=== PATIENT | male | born 1975 | race Caucasian/White ===

== ENCOUNTER 2018-11-05 17:31 | Emergency (ER) | payer SELFPAY ==
[2018-11-05 17:32] VITALS: BP 142/77; PULSE 95; RESP 17; TEMP 36.9; O2SAT 98; BMI 25.4
[2018-11-05 17:39] VITALS: RESP 16
--- NOTE | 2018-11-05 17:58 | ED.VIS.GEN ---
History of Present Illness Chief Complaint: Dental Detail of Chief Complaint: Pain and swelling Onset: Days Current Severity: Moderate Maximum Severity: Moderate Narrative: Patient presents with 3-day history of left upper dental pain and facial swelling. He states he has had drainage from this abscess. He denies fever or chills. He does not have a dentist to follow-up with. Past Medical History - Allergies and Home Meds Allergies/Adverse Reactions: Allergies No Known Allergies Allergy (Verified 11/05/18 17:31) Primary Care Physician: Care Physician,No Primary [Primary Care Provider] - Prior records reviewed: Yes Past Medical History: - - Reviewed Smoking Status: Former smoker Review of Systems General: Denies: Chills, Fever Eyes: Denies: Visual changes - bilaterally ENT: Reports: - - Facial swelling and dental pain. Denies: Bilateral ear pain Cardiovascular: Denies: Chest pain Respiratory: Denies: Dyspnea Gastrointestinal: Denies: Abdominal pain Musculoskeletal: Denies: Myalgias, Arthralgias Skin: Reports: Abscess Neurological: Denies: Headache Hematologic: Denies: Easy bruising Allergy: Denies: Uticaria Physical Exam Vital Signs/Narrative: Vital Signs Temp Pulse Resp BP Pulse Ox 11/05/18 17:39 16 11/05/18 17:32 98.4 F 95 17 142/77 H 98 Inital Vital Signs reviewed: Yes General: Well nourished, Well developed Head: - - Mild left facial edema. ENT: Moist mucous membranes, - - Multiple dental caries with many teeth broken off at gumline. Left upper gumline is mildly swollen. Posterior pharynx examination is normal. Patient speaks with a strong voice and is tolerating secretions well. Back: Nontender Extremities: Nontender Skin: Normal color Neurological: Alert, Oriented x3 Psychological: Normal affect Diagnostic/Tx/Re-eval - Medical Decision Making Patient is given a prescription for Pen-Vee K. He is given a dental referral list. ED Disposition - Plan for ED Patient: Disposition: Home or Assisted Living Diagnosis: Dental abscess Instructions: Dental Abscess Prescriptions: Naproxen [Naprosyn] 500 mg PO BID PRN PRN #20 tablet PRN Reason: Pain Penicillin V Potassium 500 mg PO 4X/DAY #40 tablet Additional Instructions: Dental list provided
[2018-11-05] MEDS: Penicillin Vk 250 MG Tablet 500 MG PO (18:04)
[2018-11-05 18:08] VITALS: RESP 16
== END 2018-11-05 18:19 | disposition home or self-care (01) ==
LOC: ED 18:15
PROVIDERS: Emergency Provider Emergency Medicine
DX: K04.7 Periapical abscess without sinus (principal); K02.9 Dental caries, unspecified; Z87.891 Personal history of nicotine dependence
CPT/HCPCS: 99283

== ENCOUNTER 2019-11-17 17:35 | Emergency (ER) | payer SELFPAY ==
[2019-11-17 17:37] VITALS: BP 146/79; PULSE 95; RESP 18; TEMP 36.4; O2SAT 100; BMI 24.0
--- NOTE | 2019-11-17 17:58 | RAD_ITS ---
STUDY: X-RAY - LEFT FOOT CLINICAL: Male, 44 years old. HIT FOOT ON TREE, PINKY TOE PAIN TECHNIQUE: 3 view(s) of the foot. COMPARISON: None. FINDINGS: Normal talus, calcaneus, and tarsal bones. Normal visualized subtalar, talonavicular, calcaneocuboid, tarsal and tarsometatarsal articulations. Normal metatarsi. Normal metatarsophalangeal joint of the great toe. Normal tibial and fibular sesamoid bones. Normal interphalangeal joint of the great toe. Normal phalanges of the great toe. Normal second through fifth metatarsophalangeal joints. Normal interphalangeal joints and phalanges of the lesser toes. Swelling of the distal aspect of the fifth toe. RAD/Foot min 3 Views IMPRESSION: Swelling of the distal fifth toe without associated fracture or dislocation Electronically Signed: Sukhwinder Elizondo MD at 18:22 EDT , Service support ,
--- NOTE | 2019-11-17 18:29 | ED.VISSUMM ---
- ER Visit Summary Date of Service: 11/17/19 Chief Complaint: [Injury to left small toe] History of Present Illness: The patient is a 44 M [presents to the emergency department with an injury to his left fifth toe that occurred 3 days ago. Patient states that he was walking barefoot outside in the night and he struck a root with his foot. Patient having pain with walking. Patient otherwise has no medical history. Patient states that he has had a tetanus shot within the last 5 years.] Physical Examination: [Left foot-patient has tenderness palpation over the small toe. Patient has a superficial abrasion over the needle aspect of the toe. He is neurovascular intact. No obvious deformity.] Test Results: [X-rays of the left foot obtained showed no fractures only some soft tissue swelling over the fifth toe.] Emergency Department Course and Treatment: [She refused crutches.] Treatment Plan: Patient will be started on Keflex due to concern for early cellulitis.] Disposition: [Discharged home in stable condition] Impression: [Contusion left fifth toe Abrasion left fifth toe with early cellulitis] This note was generated with [employer] dictation software. It may contain incorrect words, spelling, and punctuation that were not noted in review of the chart prior to signing ED Disposition - Plan for ED Patient: Referrals: Care Physician,No Primary [Primary Care Provider] -
--- NOTE | 2019-11-17 18:32 | DCINST.ED_ITS ---
ED Disposition - Plan for ED Patient: Instructions: ED FOOT CONTUSION, ED Cellulitis Prescriptions: Cephalexin [Keflex] 500 mg PO Q6 #40 cap Transmission Status: Pending to [employer] Support #30 Referrals: Care Physician,No Primary [Primary Care Provider] - Juan Patel III, MD [STAFF PHYSICIAN] - 3-5 Days
== END 2019-11-17 19:00 | disposition home or self-care (01) ==
LOC: ED 18:20
PROVIDERS: Emergency Provider Emergency Medicine
DX: S90.122A Contusion of left lesser toe(s) without damage to nail, initial encounter (principal); S90.415A Abrasion, left lesser toe(s), initial encounter; L03.032 Cellulitis of left toe; W22.09XA Striking against other stationary object, initial encounter; Y93.01 Activity, walking, marching and hiking; Y92.9 Unspecified place or not applicable; Y99.9 Unspecified external cause status; F17.220 Nicotine dependence, chewing tobacco, uncomplicated
CPT/HCPCS: 73630; 99282

== ENCOUNTER 2020-03-08 17:56 | Emergency (ER) | payer MEDICARE, SELFPAY ==
[2020-03-08 17:57] VITALS: BP 144/97; PULSE 105; RESP 25; TEMP 39.3; O2SAT 97; BMI 23.8
--- NOTE | 2020-03-08 18:13 | ED.DCSUM_ITS ---
History of Present Illness Chief Complaint: Shortness of Breath Informant: Patient Narrative: Patient states that his sent him to the hospital to be checked for Covid. She tested +3 days ago. He started coughing yesterday. He notes some anterior chest soreness with coughing. He notes a sore throat with cough. Headache generalized myalgias and body aches. He states that he is a non-smoker. He tells me that his is a nurse at a residential and checked his pulse and it was 80 and she got concerned and sent him in. Past Medical History - Allergies and Home Meds Allergies/Adverse Reactions: Allergies No Known Allergies Allergy (Verified 03/08/20 18:01) Primary Care Physician: Care Physician,No Primary [Primary Care Provider] - Past Medical History: None Surgical History: noncontributory Lives: Spouse/ Significant Other Smoking Status: Former smoker Drugs: None Review of Systems General: Reports: Chills, Fever, Malaise. Denies: Sweats Eyes: Denies: Visual changes - bilaterally, Diplopia ENT: Denies: Rhinorrhea, Sore throat Cardiovascular: Reports: Chest pain. Denies: Palpitations Respiratory: Reports: Dyspnea, Cough. Denies: Dyspnea on exertion Gastrointestinal: Reports: Nausea, Diarrhea. Denies: Abdominal pain, Vomiting, Melena, Hematochezia Genitourinary: Denies: Dysuria, Hematuria, Frequency Musculoskeletal: Reports: Myalgias. Denies: Back pain, Extremity Pain Skin: Denies: Rash, Wounds Neurological: Reports: Headache, Parasthesia. Denies: Weakness, Numbness Physical Exam Vital Signs/Narrative: Vital Signs Temp Pulse Resp BP Pulse Ox 03/08/20 17:57 102.8 F H 105 H 25 H 144/97 H 97 Diagnostic/Tx/Re-eval - Medical Decision Making My interpretation of the single view portable chest x-ray is no acute infiltrates. Normal mediastinal silhouette. Patient received 800 mg of Motrin and we obtained a Covid antigen test. Patient's vital signs show no hypoxemia. He is speaking in full sentences. I think he can be managed at home at the current time. Would recommend self- isolation. Return if worsening or concerns ED Disposition - Plan for ED Patient: Disposition: Home or Assisted Living Diagnosis: COVID-19 Instructions: Coronavirus Disease 2019 (COVID-19): Caring for Yourself or Others Referrals: Good Ewing MD [STAFF PHYSICIAN] - (as needed for primary care)
[2020-03-08] MEDS: Ibuprofen 400 MG Tablet 800 MG PO (18:20)
--- NOTE | 2020-03-08 18:24 | RAD_ITS ---
STUDY: X-RAY CHEST REASON FOR EXAM: Male, 44 years old. SOB, TESTED POSITIVE FOR COVID 3 DAYS AGO TECHNIQUE: AP portable COMPARISON: 07/03/2016 FINDINGS: There is mild interstitial thickening in the lower lobes.. There is no demonstrated pleural abnormality. Normal size heart. Normal mediastinum and tana. Normal visualized pulmonary arteries. Normal visualized aortic arch and descending thoracic aorta. Dorsal spine demonstrates mild spondylosis.. Normal visualized ribs, clavicles, and shoulders. There is no demonstrated abnormality of the visualized soft tissue structures of the upper abdomen. No significant change since prior exam RAD/Chest 1 View (Portable) IMPRESSION: Mild interstitial thickening in the lower lobes. No focal infiltration.. Electronically Signed: Sukhwinder Elizondo MD at 18:59 EST , Service support ,
[2020-03-08 19:22] VITALS: PULSE 90; RESP 18; O2SAT 95
== END 2020-03-08 19:26 | disposition home or self-care (01) ==
LOC: ED 18:55
PROVIDERS: Emergency Provider Emergency Medicine
DX: U07.1 COVID-19 (principal); Z87.891 Personal history of nicotine dependence
CPT/HCPCS: 71045; 87426; 99284

== ENCOUNTER 2020-11-07 15:15 | Emergency (ER) | payer MEDICAID, SELFPAY ==
[2020-11-07 15:16] VITALS: BP 144/102; PULSE 93; RESP 16; TEMP 36.6; O2SAT 100; BMI 25.2
--- NOTE | 2020-11-07 15:25 | RAD_ITS ---
STUDY: X-RAY - UNILATERAL RIBS ( LEFT ) WITH CHEST REASON FOR EXAM: Male, 45 years old. FALL TECHNIQUE - RIBS: 4 view(s) of the ribs. TECHNIQUE - CHEST: Single PA view of the chest. COMPARISON: Chest x-ray dated March 08, 2020 FINDINGS - RIBS: Acute minimally displaced oblique fracture is present at the lateral aspect of the left sixth rib. No additional fractures are seen. FINDINGS - CHEST: The lungs are clear and expanded. There is no demonstrated pleural abnormality. Normal size heart. Normal mediastinum and tana. Normal visualized pulmonary arteries. There is atherosclerotic calcification of the aortic arch with tortuosity. There are diffuse degenerative changes of the visualized thoracic spine. Normal visualized clavicles and shoulders. There is no demonstrated abnormality of the visualized soft tissue structures of the upper abdomen. RAD/Ribs Uni Min 3V w/PA Chest IMPRESSION: RIBS: Acute minimally displaced oblique fracture is present at the lateral aspect of the left sixth rib. No additional fractures are seen. CHEST: No acute process Electronically Signed: Danny Smalls MD at 16:43 EDT , Service support ,
--- NOTE | 2020-11-07 16:28 | CM.ED ---
SW Note Referral Source: Case Find Referral Reason: No Primary Care Physician (PCP) SW reviewed chart and noted that patient has no PCP. SW provided patient with list of [facility] List for reference. SW remains available for any additional needs. Plan: Provided patient with PCP information Monika GLOVER
--- NOTE | 2020-11-07 16:48 | EX.ED.GENINJ ---
HPI History of Present Illness Chief Complaint: Fall Informant: patient Narrative Narrative: Patient is a 45-year-old previously healthy male who presents to the emergency department after a fall out of a tree stand. He states he was approximately 10 feet up whenever he lost his balance and fell out and landed on the left side. This was 2 days prior. He has been having left rib pain since. He denies any significant shortness of breath. No known aggravating or relieving factors. He denies any abdominal pain or nausea/vomiting. No blood in his urine. No change in bowel movements. He has not been taking anything for his symptoms. He currently rates the pain as a 7 out of 10. He denies hitting his head or losing consciousness. No neck or back pain. PFSH PFSH Home Medications hydrocodone-acetaminophen 1 tab PO Q6H PRN PRN 3 Days #12 tablet 11/07/20 [Rx Last Taken Unknown] lidocaine [Lidoderm] 1 patch TOPICAL DAILY 10 Days #5 ea 11/07/20 [Rx Last Taken Unknown] naproxen [Naprosyn] 500 mg PO BID PRN 10 Days #20 tab 11/07/20 [Rx Last Taken Unknown] Allergy/AdvReac Type Severity Reaction Status Date / Time No Known Allergies Allergy Verified 11/07/20 15:15 Social History Smoking Status: Current some day smoker tobacco type: smokeless tobacco ROS ROS ED Constitutional Constitutional ED: Denies chills or fever(s) Eyes Eyes: Denies change in vision ENT ENT ED: Denies epistaxis or rhinorrhea Cardiovascular Cardiovascular: Reports other Details: Chest wall pain ; Denies palpitations Respiratory/Chest Respiratory/Chest: Denies cough or dyspnea Gastrointestinal Gastrointestinal: Denies abdominal pain, diarrhea, nausea or vomiting Genitourinary Genitourinary ED: Denies dysuria, hematuria or urinary frequency Musculoskeletal Musculoskeletal: Denies back pain or neck pain Integumentary Denies rash Neurologic Neurologic: Denies dizziness, headache(s) or weakness EXAM Physical Exam Const Vital Signs: 11/07/20 15:16 11/07/20 15:39 Temperature 97.8 F Temperature Source Temporal Pulse Rate 93 Respiratory Rate 16 Respiratory Effort Normal Non-Labored Respiratory Depth Normal Respiratory Pattern Normal Blood Pressure 144/102 H Blood Pressure Mean 116 Pulse Ox 100 Oxygen Delivery Method Room Air Positive well nourished and well developed General Appearance ED: well developed and NAD HEENT Reports normocephalic, head/scalp atraumatic and moist mucous membranes Eyes PERRL and EOMs intact bilaterally Neck supple General: Negative for tenderness Chest Wall inspection of chest normal Chest Narrative: There is tenderness over the left lateral chest wall. No crepitus or step-off sign appreciated. Resp normal respiratory effort and clear to auscultation bilaterally Auscultation: Negative for rales, rhonchi or wheezes Cardio regular rate, regular rhythm and no murmurs GI normal to inspection, nondistended, normoactive bowel sounds and non-tender Palpation: soft; Negative for guarding or rebound tenderness present Back/Spine no CVA tenderness Extremity normal to inspection General Extremety ED: Negative for edema or tenderness General Extremity: Negative for edema Neuro oriented x3, CN's II-XII intact bilaterally and no sensory deficits noted Sensorium / Orientation: alert Motor Exam: strength 5/5 throughout Psych mental status grossly normal Skin Skin Narrative: Superficial abrasion over left lateral abdominal/chest wall MDM MDM MDM Narrative Medical decision making narrative: Patient presents to the emergency department for left rib pain after a fall out of a tree stand 2 days ago. On arrival to the ED he is not hypotensive or tachycardic. He satting 100% on room air. He is not tachypneic. He does have tenderness along the left chest wall without any abdominal tenderness at all. X-ray was obtained out of triage and did show a left sixth rib fracture that is minimally displaced. No evidence of pneumothorax. Will recommend symptomatic treatment of this. He is given a prescription for Naprosyn, [place] and Lidoderm patch. Is given incentive spirometer. We will have him follow-up with PCP. Social work did give him referrals as he does not currently have one. Patient is comfortable with this plan. Return precautions are reviewed. All questions were answered. Radiography Diagnostic Testing: Radiology Impression Ribs w/Chest X-Ray 11/07/20 15:25 IMPRESSION: RIBS: Acute minimally displaced oblique fracture is present at the lateral aspect of the left sixth rib. No additional fractures are seen. CHEST: No acute process Electronically Signed: Danny Smalls MD at 16:43 EDT , Service support , Discharge Plan Triage Chief Complaint: Fall ED Provider: Stanton Perez Dx/Rx/DC Orders Clinical Impression: Closed rib fracture Instructions: ED Rib Fracture Prescriptions: New hydrocodone-acetaminophen 5-325 mg tablet 1 tab PO Q6H PRN PRN (Reason: Pain) 3 Days Qty: 12 RF: 0 naproxen [Naprosyn] 500 mg tablet 500 mg PO BID PRN (Reason: pain) 10 Days Qty: 20 RF: 0 lidocaine [Lidoderm] 5 % adhesive patch,medicated 1 patch topical DAILY 10 Days Qty: 5 RF: 0 Primary Care Provider: Care Physician,No Primary Referrals: Care Physician,No Primary [Primary Care Provider] - 2 Days Disposition Disposition: Home, Self Care
[2020-11-07] MEDS: HYDROcodone Bitartrate/Apap 5/325 Tablet PO (16:58)
== END 2020-11-07 17:33 | disposition home or self-care (01) ==
PROVIDERS: Emergency Provider Emergency Medicine
DX: S22.32XA Fracture of one rib, left side, initial encounter for closed fracture (principal); F17.200 Nicotine dependence, unspecified, uncomplicated; W01.0XXA Fall on same level from slipping, tripping and stumbling without subsequent striking against object, initial encounter
CPT/HCPCS: 71101; 99283

== ENCOUNTER 2021-10-23 12:13 | Emergency (ER) | payer MEDICAID, SELFPAY ==
[2021-10-23 12:16] VITALS: BP 137/49; PULSE 101; RESP 17; TEMP 36.9; O2SAT 100; BMI 25.1
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
[2021-10-23] MEDS: HYDROcodone Bitartrate/Apap 5/325 Tablet PO (13:15)
[2021-10-23 14:57] VITALS: PULSE 97; RESP 17; O2SAT 100
== END 2021-10-23 14:58 | disposition home or self-care (01) ==
PROVIDERS: Emergency Provider Emergency Medicine; Visit Provider Emergency Medicine
DX: S22.41XA Multiple fractures of ribs, right side, initial encounter for closed fracture (principal); V18.4XXA Pedal cycle driver injured in noncollision transport accident in traffic accident, initial encounter; Y93.55 Activity, bike riding; F17.220 Nicotine dependence, chewing tobacco, uncomplicated
CPT/HCPCS: 71101; 99285

== ENCOUNTER 2021-10-29 16:13 | Emergency (ER) | payer MEDICAID, SELFPAY ==
[2021-10-29 16:13] VITALS: BP 146/93; PULSE 99; RESP 16; TEMP 36.2; O2SAT 98; BMI 26.6
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
--- NOTE | 2021-10-29 16:39 | CM.ED ---
SW Note Referral Source: Case Find Referral Reason: No Primary Care Physician (PCP) SW reviewed chart and noted that patient has no PCP. SW provided patient with list of [facility] and [facility]ician List for reference. SW also provided patient with handout ?Where to go When?. No other issues or concerns voiced at this time. SW remains available for any additional needs. Plan: Provided patient with PCP information Monika GLOVER
== END 2021-10-29 16:50 | disposition home or self-care (01) ==
PROVIDERS: Emergency Provider Emergency Medicine; Visit Provider Emergency Medicine
DX: S22.31XA Fracture of one rib, right side, initial encounter for closed fracture (principal); V19.9XXA Pedal cyclist (driver) (passenger) injured in unspecified traffic accident, initial encounter; F17.220 Nicotine dependence, chewing tobacco, uncomplicated
CPT/HCPCS: 99283

== ENCOUNTER 2022-08-21 09:00 | Emergency (ER) | payer MEDICAID, SELFPAY ==
[2022-08-21 09:01] VITALS: BP 158/120; PULSE 96; RESP 18; TEMP 36.2; O2SAT 100; BMI 23.7
--- NOTE | 2022-08-21 09:19 | EKG12_ITS ---
Test Reason : CHEST-OTHER Blood Pressure : / mmHG Vent. Rate : 084 BPM Atrial Rate : 084 BPM P-R Int : 144 ms QRS Dur : 088 ms QT Int : 380 ms P-R-T Axes : 042 -38 000 degrees QTc Int : 449 ms Poor data quality, interpretation may be adversely affected Normal sinus rhythm Left axis deviation Abnormal ECG Confirmed by VERO BRANDT, MARGUERITE ([id number]), pictures editor LOY RONDON ([id number]) on 08/23/2022 10:09:41 A M Referred By: Confirmed By:DAGO PHAM MD
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
--- NOTE | 2022-08-21 09:21 | NURSING ---
NO OLD EKGS
[2022-08-21] MEDS: Ondansetron 4 MG/2 ML Vial IV (09:42)
[2022-08-21] MEDS: Morphine 4 MG/ML Syringe IV (09:43)
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
[2022-08-21 10:08] LABS: Absolute Lymphocyte Count 2.48 X10^3/uL (0.83-4.51); Absolute Neutrophil Count 4.7 X10^3/uL (2.0-7.7); Basophil# 0.07 X10^3/uL; Basophil% 0.8 % (0-1); Eosinophil# 0.33 X10^3/uL; Hematocrit 42.1 % (40-54); Lymphocyte # 2.48 X10^3/ul (0.83-4.51); Mean Corp Hgb Conc 33.3 g/dL (32-36); Mean Corpuscular Hgb 31.4 pg (27.0-32.0); Mean Corpuscular Volume 94.4 fL (80-94); Mean Platelet Vol. 9.2 fl (6.2-12.0); Monocyte# 0.72 X10^3/uL; Monocyte% 8.7 % (0-10); NRBC Flagged by Analyzer 0 % (0-5); Neutrophil # 4.65 X10^3/uL (2.7-7.7); Neutrophil % 56.1 % (47-70); Platelet Count 306 K/mm3 (150-450); RBC Distribution Width CV 13.5 % (11.6-14.6); RBC Distribution Width SD 46.8 fl (35.1-43.9); Red Blood Count 4.46 M/mm3 (4.6-6.2); White Blood Count 8.3 K/mm3 (4.4-11.0)
[2022-08-21 10:16] LABS: Anion Gap 7 (5-15); BUN 18 mg/dL (7-18); BUN/Creat Ratio 18.9 RATIO (10-20); Calcium,Total 8.9 mg/dL (8.5-10.1); Chloride 102 mmol/L (98-107); Creatinine, Serum 0.95 mg/dL (0.70-1.30); EST Glomerular Filtration Rate 90 mL/min (>60); Est Glom Filt Rate - Afr Amer 109 mL/min (>60); Estimated Creatinine Clearance 96.13 ml/min; Glucose 94 mg/dL (74-106); Potassium 3.4 mmol/L (3.5-5.1); Sodium Level 140 mmol/L (136-145); Troponin-I HS 5 pg/mL (3.0-78.0)
[2022-08-21 12:36] VITALS: BP 149/75; PULSE 72; RESP 16; O2SAT 96
== END 2022-08-21 12:38 | disposition home or self-care (01) ==
PROVIDERS: Emergency Provider Student in an Organized Health Care Education/Training Program; Visit Provider Student in an Organized Health Care Education/Training Program
DX: F17.210 Nicotine dependence, cigarettes, uncomplicated (principal); R05.9 Cough, unspecified; R06.00 Dyspnea, unspecified; R10.9 Unspecified abdominal pain; V19.3XXA Pedal cyclist (driver) (passenger) injured in unspecified nontraffic accident, initial encounter
CPT/HCPCS: 71101; 80048; 84484; 85025; 93005; 96374; 96375; 99284; A4216; J2405